=== PATIENT | female | born 1960 | race Caucasian/White ===

== ENCOUNTER → 2017-03-23 | Day surgery (SDC) | payer MEDICARE ==
[~2017-03-23] VITALS: Ht 162.6 cm; Wt 41.5 kg
[2017-03-23 10:03] LABS: CREATININE 0.5 mg/dL (0.5-1.0); POTASSIUM 4.4 mmol/L (3.5-5.1)
== END | disposition home or self-care (01) ==
LOC: FAS 08:47
PROVIDERS: Anesthesiology
DX: Z12.11 Encounter for screening for malignant neoplasm of colon (principal); K29.50 Unspecified chronic gastritis without bleeding; K20.9 Esophagitis, unspecified; D12.8 Benign neoplasm of rectum; D12.0 Benign neoplasm of cecum; D12.3 Benign neoplasm of transverse colon; D12.2 Benign neoplasm of ascending colon; D12.4 Benign neoplasm of descending colon; D12.5 Benign neoplasm of sigmoid colon; I25.10 Atherosclerotic heart disease of native coronary artery without angina pectoris; I10 Essential (primary) hypertension; I25.2 Old myocardial infarction; E10.9 Type 1 diabetes mellitus without complications; Z79.4 Long term (current) use of insulin; Z79.82 Long term (current) use of aspirin; Z79.899 Other long term (current) drug therapy; Z87.891 Personal history of nicotine dependence
CPT/HCPCS: 36415; 80048; 88305; J2704

== ENCOUNTER 2022-02-17 09:45 | Emergency (ER) | payer MEDICARE ==
[~2022-02-17 09:45] MED LIST: ACETAMINOPHEN325 MG PO; ADULT ASPIRIN R81 MG PO; BRILINTA90 MG PO; COLACE100 MG PO; ISOSORBIDE MONO60 MG PO; LOPRESSOR25 MG PO; MAG-OXIDE 400M400 MG PO; NITROGLYCERIN0.4 MG SL; NOVOLOG VI100 UNIT/1 SC; PROBIOTIC-DIGE1 EACH PO; TRESIBA FL100 UNIT/1 SC; VITAMIN B-121000 MC1 PO; VITAMIN D35000 UNI1 PO; ZESTRIL5 MG PO
[2022-02-17 11:10] LABS: EOSINOPHIL 0.3 % (0-7); HCT 40.1 % (37.0-47.0); LYMPHOCYTE 7.9 % (15-48); MCH 32.9 pg (25.0-31.0); MCHC 32.4 g/dL (32.0-36.0); MCV 101.5 fL (78.0-100.0); MONOCYTE 11.8 % (0-12); MPV 11.2 fL (6.0-9.5); NEUTROPHIL 77.2 % (41-80); NRBC 0; PLT 208 K/uL (150-400); RBC 3.95 M/uL (4.20-5.40); WBC 11.3 K/uL (4.0-10.5)
[2022-02-17 11:14] LABS: BILIRUBIN NEGATIVE (NEGATIVE); BLOOD NEGATIVE Ery/uL (NEGATIVE); CLARITY HAZY (CLEAR); COLOR YELLOW (YELLOW); GLUCOSE (U) NORMAL (NORMAL); LEUKOCYTES NEGATIVE Leu/uL (NEGATIVE); NITRITE NEGATIVE (NEGATIVE); PROTEIN 2+ mg/dL (NEGATIVE); SPECIFIC GRAVITY >=1.030 (1.001-1.030); UROBILINOGEN 0.2 mg/dL (0.2-1.0)
[2022-02-17 11:25] LABS: URINARY RBC RARE
[2022-02-17 11:26] LABS: BACTERIA TRACE; MUCOUS TRACE
[2022-02-17 11:28] LABS: INR 1.03 (0.9-1.2); PROTHROMBIN TIME 12.9 SECONDS (11.8-13.4); PTT 30.9 SECONDS (24.4-34.7)
[2022-02-17 11:32] LABS: ALBUMIN 3.5 g/dL (3.4-5.0); BILIRUBIN - TOTAL 0.3 mg/dL (0.2-1.0); BUN/CREAT RATIO (CALC) 13.9 RATIO; CREATININE 0.72 mg/dL (0.51-0.95); GLOBULIN (CALCULATION) 3.1 g/dL; TOTAL PROTEIN 6.6 g/dL (6.4-8.2)
[2022-02-17] MEDS ORDERED: NORCO 5-325 TA1 EACH PO (16:13)
[2022-02-17] MEDS ORDERED: VIBRAMYCIN100 MG PO (16:13)
[2022-02-17] MEDS ORDERED: ONDANSETRON ODT4 MG PO (16:13)
== END 2022-02-17 16:20 | disposition home or self-care (01) ==
LOC: FER 09:45
PROVIDERS: Emergency Medicine
DX: K52.9 Noninfective gastroenteritis and colitis, unspecified (principal); J18.9 Pneumonia, unspecified organism; I10 Essential (primary) hypertension; Z87.891 Personal history of nicotine dependence; Z28.310 Unvaccinated for COVID-19
CPT/HCPCS: 36415; 80053; 81001; 84145; 85025; 85610; 85730; J1170; J2405; J7030

== ENCOUNTER 2022-03-17 14:48 | Emergency (ER) | payer MEDICARE ==
[~2022-03-17 14:48] MED LIST changes: +NORCO 5-325 TA1 EACH PO; +ONDANSETRON ODT4 MG PO; +VIBRAMYCIN100 MG PO
[2022-03-17 19:37] LABS: EOSINOPHIL 0 % (0-7); HCT 37.8 % (37.0-47.0); HGB 12.5 g/dl (12.5-16.0); LYMPHOCYTE 6.3 % (15-48); MCH 32.2 pg (25.0-31.0); MCHC 33.1 g/dL (32.0-36.0); MCV 97.4 fL (78.0-100.0); MONOCYTE 4.5 % (0-12); MPV 10.1 fL (6.0-9.5); NEUTROPHIL 87.6 % (41-80); NRBC 0; PLT 263 K/uL (150-400); RBC 3.88 M/uL (4.20-5.40); WBC 10.1 K/uL (4.0-10.5)
[2022-03-17 20:03] LABS: ALBUMIN 3.1 g/dL (3.4-5.0); BILIRUBIN - TOTAL 0.4 mg/dL (0.2-1.0); BUN/CREAT RATIO (CALC) 25.3 RATIO; CREATININE 0.75 mg/dL (0.51-0.95); GLOBULIN (CALCULATION) 3.7 g/dL; POTASSIUM 3.6 mmol/L (3.5-5.1); TOTAL PROTEIN 6.8 g/dL (6.4-8.2)
[2022-03-17 20:59] LABS: BILIRUBIN 1+ mg/dL (NEGATIVE); BLOOD NEGATIVE Ery/uL (NEGATIVE); CLARITY CLEAR (CLEAR); COLOR YELLOW (YELLOW); GLUCOSE (U) NORMAL (NORMAL); LEUKOCYTES NEGATIVE Leu/uL (NEGATIVE); NITRITE NEGATIVE (NEGATIVE); PROTEIN 2+ mg/dL (NEGATIVE); SPECIFIC GRAVITY >=1.030 (1.001-1.030); UROBILINOGEN 0.2 mg/dL (0.2-1.0)
[2022-03-17 21:06] LABS: AMPHETAMINES NEGATIVE (NEGATIVE); BARBITURATES NEGATIVE (NEGATIVE); ECSTASY (MDMA) NEGATIVE (NEGATIVE); MARIJUANA (THC) POSITIVE (NEGATIVE); METHADONE NEGATIVE (NEGATIVE); OPIATES NEGATIVE (NEGATIVE); OXYCODONE NEGATIVE (NEGATIVE)
[2022-03-17 21:14] LABS: TRANSITIONAL EPITHELIAL CELLS RARE; URINARY WBC RARE
[2022-03-17] MEDS ORDERED: AMOX TR-K CLV1 EAC4 PO (21:16)
[2022-03-17] MEDS ORDERED: ZPAK PO (21:16)
[2022-03-17] MEDS ORDERED: ONDANSETRON ODT4 MG PO (21:27)
[2022-03-17] MEDS ORDERED: PHENERGAN25 M1 PO (21:27)
== END 2022-03-17 22:08 | disposition home or self-care (01) ==
LOC: FER 14:48
PROVIDERS: Emergency Medicine
DX: K52.9 Noninfective gastroenteritis and colitis, unspecified (principal); J18.9 Pneumonia, unspecified organism; I10 Essential (primary) hypertension; Z87.891 Personal history of nicotine dependence; Z79.82 Long term (current) use of aspirin; Z79.899 Other long term (current) drug therapy; Z28.310 Unvaccinated for COVID-19
CPT/HCPCS: 36415; 80053; 80305; 81001; 83690; 85025; G0480; J0696; J1170; J1885; J2405; J3010; Q0169; Q9967